=== PATIENT | female | born 1950 | race Caucasian/White ===

== ENCOUNTER 2023-07-14 12:05 | Emergency (ER) | payer MEDICARE, OTHER ==
[2023-07-14 12:36] LABS: Hematocrit 17.5 % (36.0-47.0); Hemoglobin 6.1 g/dL (12.0-16.0); Mean Corpuscular Hemoglobin 30.2 pg (27.0-31.0); Mean Corpuscular Volume 86.4 fl (78.0-98.0); Mean Platelet Volume 11.6 fL (7.4-10.4); Platelet Count 11 10x3/uL (130-400); RBC Distribution Width 15.9 % (11.5-14.5); Red Blood Cell (RBC) Count 2.03 mill/uL (4.20-5.40); White Blood Cell (WBC) Count 18.8 10x3/uL (4.8-10.8)
[2023-07-14 12:49] LABS: ALT (SGPT) 13 U/L (8-55); AST (SGOT) 16 U/L (5-34); Albumin 4.2 g/dL (3.4-4.8); Alkaline Phosphatase 110 U/L (40-110); Anion Gap 21 mmol/L (10-20); BUN (Urea Nitrogen) 17 mg/dL (9.8-20.1); Bilirubin, Total 1.1 mg/dL (0.2-1.2); Calc. Creatinine Clearance 0 mL/min (70-130); Calcium 9.8 mg/dL (7.8-10.44); Carbon Dioxide 24 mmol/L (23-31); Chloride 92 mmol/L (98-107); Estimated GFR 45; Globulin 2.7 g/dL (2.4-3.5); Glucose 95 mg/dL (83-110); Potassium 3.6 mmol/L (3.5-5.1); Protein, Total 6.9 g/dL (5.8-8.1); Sodium 133 mmol/L (136-145)
[2023-07-14 12:50] LABS: Troponin I Less than 0.010 ng/mL (< 0.028)
[2023-07-14 13:13] LABS: Reflex for Review?? YES
[2023-07-14 13:14] LABS: Band 8 % (5-11); Differential Comment Immature Cell(s); Eosinophils 3 % (0-10); Hypochromia SLIGHT = 6-15 cells (100X) (0-5/hpf); Lymphocytes 20 % (21-51); MDiff Complete? YES; Neutrophil 35 % (42-75); Nucleated RBC (Manual Ct) 3 % (0); Platelet Adequacy Comment Appears Decreased
[2023-07-14 13:23] LABS: SARS-CoV-2 NAA Rapid Test Not Detected (NotDetected)
[2023-07-14 13:24] LABS: INR-International Normal Ratio 1.1; Prothrombin Time 14.6 sec (12.0-14.7)
[2023-07-14 13:25] LABS: PTT 38.7 sec (22.9-36.1)
[2023-07-14 14:06] LABS: Bilirubin Negative (Negative); Blood, Urine Small (Negative); Clarity Slightly Cloudy (Clear); Glucose, Urine (Dipstick) Negative (Negative); Ketone, Urine Negative (Negative); Leukocyte Negative (Negative); Nitrite Positive (Negative); Protein, Urine (Dipstick) 100 mg/dL (Neg-Trace); Specific Gravity, Urine 1.025 (1.005-1.030); pH, Urine 5.5 (5.0-9.0)
[2023-07-14 14:13] LABS: Bacteria/HPF 1+ HPF (None Seen); CAUTI Indications for Culture Dysuria,urgency,freq; Urine Culture Reflex No No; WBC/HPF None Seen HPF (0-3)
[2023-07-14] MEDS ORDERED: Cephalexin 250 MG CAP ONE (17:03)
[2023-07-15 15:39] LABS: Iron 198 ug/dL (50-170); Iron Binding Capacity, Total 296 mcg/dL (265-497)
[2023-07-17 13:45] LABS: Monocytes 10 % (0-10)
[2023-07-17 13:46] LABS: Other Cell Types 22
== END 2023-07-14 17:16 | disposition home or self-care (01) ==
LOC: BURERS 12:05
DX: N39.0 Urinary tract infection, site not specified (principal); D64.9 Anemia, unspecified; E86.0 Dehydration; I10 Essential (primary) hypertension
CPT/HCPCS: 0240U; 36430; 71045; 80053; 81001; 82728; 83540; 83550; 84484; 85025; 85610; 85730; 86140; 86850; 86900; 86901; 86920; 93005; 94760; P9016; 85060; 96360

== ENCOUNTER 2023-07-24 09:49 | Emergency (ER) | payer MEDICARE, OTHER ==
[2023-07-24 10:18] LABS: Hematocrit 18.9 % (36.0-47.0); Hemoglobin 6.6 g/dL (12.0-16.0); Mean Corpuscular HGB CONC 34.9 g/dL (32.0-36.0); Mean Corpuscular Hemoglobin 29.7 pg (27.0-31.0); Mean Corpuscular Volume 85.1 fl (78.0-98.0); Mean Platelet Volume 16.1 fL (7.4-10.4); Platelet Count 16 10x3/uL (130-400); RBC Distribution Width 14.9 % (11.5-14.5); Red Blood Cell (RBC) Count 2.22 mill/uL (4.20-5.40); White Blood Cell (WBC) Count 29.2 10x3/uL (4.8-10.8)
[2023-07-24 10:37] LABS: Manual Diff?? YES
[2023-07-24 10:39] LABS: ALT (SGPT) 10 U/L (8-55); AST (SGOT) 11 U/L (5-34); Albumin 3.6 g/dL (3.4-4.8); Alkaline Phosphatase 81 U/L (40-110); Anion Gap 22 mmol/L (10-20); BUN (Urea Nitrogen) 41 mg/dL (9.8-20.1); Bilirubin, Total 0.9 mg/dL (0.2-1.2); Calc. Creatinine Clearance 0 mL/min (70-130); Calcium 9.2 mg/dL (7.8-10.44); Carbon Dioxide 18 mmol/L (23-31); Chloride 92 mmol/L (98-107); Estimated GFR 22; Globulin 2.7 g/dL (2.4-3.5); Glucose 99 mg/dL (83-110); Potassium 3.3 mmol/L (3.5-5.1); Protein, Total 6.3 g/dL (5.8-8.1); Sodium 129 mmol/L (136-145)
[2023-07-24 10:40] LABS: Troponin I 0.029 ng/mL (< 0.028)
[2023-07-24 10:45] LABS: Lymphocytes 20 % (21-51); MDiff Complete? YES; Neutrophil 56 % (42-75)
[2023-07-24 10:46] LABS: Anisocytosis SLIGHT = 6-15 cells (100X) (0-5/hpf); Blast 15 % (0-0); Monocytes 9 % (0-10); Nucleated RBC (Manual Ct) 3 % (0); Ovalocytes SLIGHT = 2-5 cells (100X) (0-1/hpf); Poikilocytosis SLIGHT = 6-15 cells (100X) (0-5/hpf); Schistocytes SLIGHT = 2-5 cells (100X) (0-1/hpf)
[2023-07-24 10:47] LABS: Smudge Cells SLIGHT
[2023-07-24] MEDS ORDERED: Fluconazole 100 MG TAB ONE (12:11)
[2023-07-24] MEDS ORDERED: Amoxicillin/Potassium Clav 875 MG TAB ONE (12:11)
[2023-07-24] MEDS ORDERED: Acyclovir 400 mg Tablet ONE (12:11)
[2023-07-24] MEDS ORDERED: Allopurinol 100 MG TAB PO SCH (12:15)
== END 2023-07-24 13:25 | disposition home or self-care (01) ==
LOC: BURERS 09:49
DX: D64.9 Anemia, unspecified (principal); D72.829 Elevated white blood cell count, unspecified; D69.6 Thrombocytopenia, unspecified; N28.9 Disorder of kidney and ureter, unspecified; I10 Essential (primary) hypertension
CPT/HCPCS: 36430; 71260; 80053; 83615; 83880; 84484; 84550; 85025; 86850; 86900; 86901; 86920; 94760; P9016